=== PATIENT | male | born 1985 | race Caucasian/White ===

== ENCOUNTER 2020-07-26 19:27 | Observation (INO) ==
[2020-07-26] MEDS ORDERED: VANCOMYCIN CONSULT ACTIVE PRN (20:28)
[2020-07-26] MEDS ORDERED: PIPERACILLIN/TAZOBACTAM 4.5 GM/120 ML BAG IV ONE (20:28)
[2020-07-26] MEDS ORDERED: PIPERACILL/TAZOBAC CONSULT ACTIVE PRN (20:28)
[2020-07-26] MEDS ORDERED: VANCOMYCIN HCL 2,250 MG in SODIUM CHLORIDE 0.9% 500 ML IV ONE (20:28)
[2020-07-26] MEDS ORDERED: SODIUM CHLORIDE 0.9% 1000ML 1,000 ML IV SCH ×2 (20:30→21:45)
[2020-07-26] MEDS ORDERED: CLINDAMYCIN 900 MG in DEXTROSE 5% 50 ML IV ONE (20:31)
[2020-07-26 21:07] LABS: Appearance Urine Clear (Clear); Basophils # (auto) 0.01 K/uL (0-0.2); Basophils % (auto) 0.1 %; Bilirubin Urine Negative (Negative); Blood Urine Negative (Negative); Color Urine Yellow; Eosinophils # (auto) 0.01 K/uL (0-0.5); Eosinophils % (auto) 0.1 %; Glucose Urine UA Negative (Negative); Hematocrit (blood only) 44.5 % (42-52); Hemoglobin 15.3 g/dL (14.0-18.0); Immature Granulocytes # (auto) 0.03 K/uL (0.00-0.02); Immature Granulocytes % (auto) 0.2 %; Ketones Urine 2+ (Negative); Leukocyte Esterase Urine Negative (Negative); Lymphocytes # (auto) 0.88 K/uL (1.2-3.4); Lymphocytes % (auto) 6.6 %; Mean Corpuscular Hemoglobin 30.5 pg (25-34); Mean Corpuscular Hgb Conc 34.4 g/dL (32-36); Mean Corpuscular Volume 88.8 fL (80-100); Mean Platelet Volume 11.6 fL (7.4-10.4); Monocytes # (auto) 0.99 K/uL (0.11-0.59); Monocytes % (auto) 7.4 %; Neutrophils # (auto) 11.47 K/uL (1.4-6.5); Neutrophils % (auto) 85.6 %; Nitrite Urine Negative (Negative); Platelet Count 180 K/uL (130-400); Protein Urine Negative (Negative); RDW Coefficient of Variation 12.3 % (11.5-14.5); RDW Standard Deviation 39.2 fL (36.4-46.3); Red Blood Count 5.01 M/uL (4.7-6.1); Specific Gravity Urine 1.023 (1.000-1.030); Urobilinogen Urine Negative (Negative); White Blood Count 13.39 K/uL (4.8-10.8)
--- NOTE | 2020-07-26 21:15 | Emergency Department Note ---
History of Present Illness General Chief complaint: Skin Problem Stated complaint: RECTAL ABSCESS Time Seen by Provider: 07/26/20 20:18 History of Present Illness Maximum Pain Intensity: 6 This is a 35-year-old male that presents to the emergency department via private vehicle accompanied by female with complaints of "rectal abscess". The patient notes over the past 2 to 3 days he has been experiencing swelling and pain to the perineal region. He notes pain extending out from the scrotum to the rectal region. He denies any known trauma or injury. T-max 1026. He is felt chilled. He did have a syncopal event earlier today just prior to arrival. The patient denies any abdominal pain. No blood in the stool. The patient does note a history of pilonidal cyst removal in the past and has had abscesses drained before. Current pain 08/23. Home Medications Medication Instructions Recorded Confirmed Type ibuprofen [Advil] 400 mg PO DIRECTED PRN 07/26/20 07/26/20 History Allergies Allergy/AdvReac Type Severity Reaction Status Date / Time adhesive tape Allergy Intermediate REDDENED Verified 07/26/20 20:14 SKIN, "TADEO", BLISTERS Past Med/Surg History Surgical History S/P tonsillectomy and adenoidectomy Social History Smoking Status: Never smoker Preferred Language: Norwegian Feels Safe at Home: Yes Review of Systems A total of 10 systems reviewed and were otherwise negative Physical Exam Vital Signs Vital Signs - 24 hr 07/26/20 19:35 07/26/20 20:04 07/26/20 21:47 Temperature 37.6 C H 38.1 C H Temperature Source Temporal Artery Scan Oral Pulse Rate 119 H Pulse Rate [Apical] 112 H 103 H Pulse Rhythm [Apical] Regular Regular Pulse Strength [Apical] Normal Normal Respiratory Rate 18 18 18 Respiratory Effort / Characteristics Non-Labored Non-Labored Respiratory Depth Normal Normal Respiratory Pattern Regular Blood Pressure 143/98 H Blood Pressure [Right Arm] 128/74 151/76 H Blood Pressure Mean 113 Blood Pressure Mean [Right Arm] 92 101 Blood Pressure Position Sitting Blood Pressure Position [Right Arm] Lying Lying Pulse Oximetry 98 98 99 Oxygen Delivery Method Room Air Room Air Room Air Sepsis Recent Fever Within 48 Hours Yes Sepsis New/Unexplained Change in Mental Status N/A Sepsis Action Taken by Nursing No Action Required 07/26/20 22:11 07/27/20 00:30 Temperature 38.1 C H Temperature Source Oral Pulse Rate Pulse Rate [Apical] 113 H 87 Pulse Rhythm [Apical] Regular Regular Pulse Strength [Apical] Normal Normal Respiratory Rate 18 18 Respiratory Effort / Characteristics Non-Labored Non-Labored Respiratory Depth Normal Normal Respiratory Pattern Regular Regular Blood Pressure Blood Pressure [Right Arm] 142/79 H 105/73 Blood Pressure Mean Blood Pressure Mean [Right Arm] 100 83 Blood Pressure Position Blood Pressure Position [Right Arm] Lying Pulse Oximetry 98 97 Oxygen Delivery Method Room Air Room Air Sepsis Recent Fever Within 48 Hours Sepsis New/Unexplained Change in Mental Status Sepsis Action Taken by Nursing VITAL SIGNS - Vital signs and nursing notes were reviewed. Tachycardic, febrile, stable. GENERAL -35-year-old male appearing his stated age who is in no acute distress. Communicates well with provider and answers questions appropriately. SKIN -from the posterior aspect of the scrotum through the perineum into the tissues just anterior to the rectal region there is erythema and edema. There is palpable induration. No evidence of drainage. There is some fluctuance. HEAD - NC/AT. EYES - Sclera anicteric. MOUTH/OROPHARYNX - Without perioral cyanosis. LUNGS - CTA CARDIAC - Tachycardic at a regular rate : There is erythema, induration and tenderness to palpation overlying the perineal region extending from the posterior scrotal region to the anterior perianal soft tissues. Fluctuance noted. PSYCH - A&Ox3 and cooperates fully with examiner. Pt is very pleasant and intera cts well with examiner. Course Administered Medications Discontinued Medications Sodium Chloride (Nss 1000ml) 1,000 mls @ 999 mls/hr IV .Q1H1M TRACIE Stop: 07/26/20 21:30 Last Infusion: 07/26/20 21:44 Dose: 0 mls/hr Documented by: [id number] Admin: 07/26/20 20:56 Dose: 999 mls/hr Documented by: [id number] Piperacillin Sod/Tazobactam Sod (Zosyn) 4.5 gm in 120 mls @ 240 mls/hr IV NOW ONE Stop: 07/26/20 20:57 Last Infusion: 07/26/20 21:44 Dose: 0 mls/hr Documented by: [id number] Admin: 07/26/20 20:56 Dose: 240 mls/hr Documented by: [id number] Vancomycin HCl 2,250 mg/ (Sodium Chloride) 545 mls @ 200 mls/hr IV NOW ONE Stop: 07/26/20 23:11 Last Admin: 07/26/20 23:10 Dose: 200 mls/hr Documented by: [id number] Clindamycin Phosphate 900 mg/ (Dextrose) 56 mls @ 112 mls/hr IV ONE ONE Stop: 07/26/20 21:00 Last Infusion: 07/26/20 22:30 Dose: 0 mls/hr Documented by: [id number] Admin: 07/26/20 21:43 Dose: 112 mls/hr Documented by: [id number] Sodium Chloride (Nss 1000ml) 1,000 mls @ 999 mls/hr IV .Q1H1M TRACIE Stop: 07/26/20 22:45 Last Infusion: 07/26/20 23:46 Dose: 0 mls/hr Documented by: [id number] Admin: 07/26/20 22:07 Dose: 999 mls/hr Documented by: [id number] Acetaminophen (Ofirmev) 1,000 mg in 100 mls @ 400 mls/hr IV NOW STA Stop: 07/26/20 22:09 Last Infusion: 07/26/20 22:30 Dose: 0 mls/hr Documented by: [id number] Admin: 07/26/20 22:07 Dose: 400 mls/hr Documented by: [id number] Ioversol (Optiray 300 100ml) 85 ml IV ONCE ONE Stop: 07/26/20 22:37 Last Admin: 07/26/20 22:36 Dose: 85 ml Documented by: [id number] Medical Decision Making Laboratory Data Result diagrams: 07/26/20 20:52 07/26/20 20:52 Lab Results 07/26/20 07/26/20 07/26/20 Range/Units 20:52 20:52 20:52 WBC 13.39 H (4.8-10.8) K/uL RBC 5.01 (4.7-6.1) M/uL Hgb 15.3 (14.0-18.0) g/dL Hct 44.5 (42-52) % MCV 88.8 (80-100) fL MCH 30.5 (25-34) pg MCHC 34.4 (32-36) g/dL RDW Std Deviation 39.2 (36.4-46.3) fL RDW Coeff of [place]ore[place] 12.3 (11.5-14.5) % Plt Count 180 (130-400) K/uL MPV 11.6 H (7.4-10.4) fL Immature Gran % (Auto) 0.2 % Neut % (Auto) 85.6 % Lymph % (Auto) 6.6 % Cross % (Auto) 7.4 % Eos % (Auto) 0.1 % Baso % (Auto) 0.1 % Neut # (Auto) 11.47 H (1.4-6.5) K/uL Lymph # (Auto) 0.88 L (1.2-3.4) K/uL Cross # (Auto) 0.99 H (0.11-0.59) K/uL Eos # (Auto) 0.01 (0-0.5) K/uL Baso # (Auto) 0.01 (0-0.2) K/uL Immature Gran # (Auto) 0.03 H (0.00-0.02) K/uL ESR 13 (0-15) mm/hr Sodium 137 (136-145) mmol/L Potassium 3.5 (3.5-5.1) mmol/L Chloride 104 (98-107) mmol/L Carbon Dioxide 29 (21-32) mmol/L Anion Gap 5.0 (3-11) BUN 17 (7-18) mg/dl Creatinine 1.30 (0.6-1.4) mg/dl Est Cr Clr Drug Dosing 104.3 ml/min Est GFR ( Amer) 83.1 ml/min Est GFR (Non-Af Amer) 71.7 ml/min BUN/Creatinine Ratio 12.7 (10-20) Glucose 81 (70-99) mg/dl Lactate (0.4-2.0) mmol/L Calcium 9.2 (8.5-10.1) mg/dl Magnesium 1.9 (1.8-2.4) mg/dl Total Bilirubin 0.7 (0.2-1) mg/dl AST 12 L (15-37) U/L ALT 43 (12-78) U/L Alkaline Phosphatase 78 (45-117) U/L C-Reactive Protein 10.40 H (0-0.29) mg/dl Total Protein 7.6 (6.4-8.2) gm/dl Albumin 3.8 (3.4-5.0) gm/dl Globulin 3.8 (2.5-4.0) gm/dl Albumin/Globulin Ratio 1.0 (0.9-2) Procalcitonin (0-0.5) ng/ml Urine Color Urine Appearance (Clear) Urine pH (4.5-7.5) Ur Specific [place] (1.000-1.030) Urine Protein (Negative) Urine Glucose (UA) (Negative) Urine Ketones (Negative) Urine Blood (Negative) Urine Nitrite (Negative) Urine Bilirubin (Negative) Urine Urobilinogen (Negative) Ur Leukocyte Esterase (Negative) COVID-19 Eval Order SARS-CoV-2 (PCR) (Negative) 07/26/20 07/26/20 07/26/20 Range/Units 20:52 20:52 20:52 WBC (4.8-10.8) K/uL RBC (4.7-6.1) M/uL Hgb (14.0-18.0) g/dL Hct (42-52) % MCV (80-100) fL MCH (25-34) pg MCHC (32-36) g/dL RDW Std Deviation (36.4-46.3) fL RDW Coeff of Lorene (11.5-14.5) % Plt Count (130-400) K/uL MPV (7.4-10.4) fL Immature Gran % (Auto) % Neut % (Auto) % Lymph % (Auto) % Cross % (Auto) % Eos % (Auto) % Baso % (Auto) % Neut # (Auto) (1.4-6.5) K/uL Lymph # (Auto) (1.2-3.4) K/uL Cross # (Auto) (0.11-0.59) K/uL Eos # (Auto) (0-0.5) K/uL Baso # (Auto) (0-0.2) K/uL Immature Gran # (Auto) (0.00-0.02) K/uL ESR (0-15) mm/hr Sodium (136-145) mmol/L Potassium (3.5-5.1) mmol/L Chloride (98-107) mmol/L Carbon Dioxide (21-32) mmol/L Anion Gap (3-11) BUN (7-18) mg/dl Creatinine (0.6-1.4) mg/dl Est Cr Clr Drug Dosing ml/min Est GFR ( Amer) ml/min Est GFR (Non-Af Amer) ml/min BUN/Creatinine Ratio (10-20) Glucose (70-99) mg/dl Lactate 2.3 H* (0.4-2.0) mmol/L Calcium (8.5-10.1) mg/dl Magnesium (1.8-2.4) mg/dl Total Bilirubin (0.2-1) mg/dl AST (15-37) U/L ALT (12-78) U/L Alkaline Phosphatase (45-117) U/L C-Reactive Protein (0-0.29) mg/dl Total Protein (6.4-8.2) gm/dl Albumin (3.4-5.0) gm/dl Globulin (2.5-4.0) gm/dl Albumin/Globulin Ratio (0.9-2) Procalcitonin 0.11 (0-0.5) ng/ml Urine Color Yellow Urine Appearance Clear (Clear) Urine pH 6.0 (4.5-7.5) Ur Specific [place] 1.023 (1.000-1.030) Urine Protein Negative (Negative) Urine Glucose (UA) Negative (Negative) Urine Ketones 2+ H (Negative) Urine Blood Negative (Negative) Urine Nitrite Negative (Negative) Urine Bilirubin Negative (Negative) Urine Urobilinogen Negative (Negative) Ur Leukocyte Esterase Negative (Negative) COVID-19 Eval Order SARS-CoV-2 (PCR) (Negative) 07/26/20 07/26/20 Range/Units 21:55 21:55 WBC (4.8-10.8) K/uL RBC (4.7-6.1) M/uL Hgb (14.0-18.0) g/dL Hct (42-52) % MCV (80-100) fL MCH (25-34) pg MCHC (32-36) g/dL RDW Std Deviation (36.4-46.3) fL RDW Coeff of Lorene (11.5-14.5) % Plt Count (130-400) K/uL MPV (7.4-10.4) fL Immature Gran % (Auto) % Neut % (Auto) % Lymph % (Auto) % Cross % (Auto) % Eos % (Auto) % Baso % (Auto) % Neut # (Auto) (1.4-6.5) K/uL Lymph # (Auto) (1.2-3.4) K/uL Cross # (Auto) (0.11-0.59) K/uL Eos # (Auto) (0-0.5) K/uL Baso # (Auto) (0-0.2) K/uL Immature Gran # (Auto) (0.00-0.02) K/uL ESR (0-15) mm/hr Sodium (136-145) mmol/L Potassium (3.5-5.1) mmol/L Chloride (98-107) mmol/L Carbon Dioxide (21-32) mmol/L Anion Gap (3-11) BUN (7-18) mg/dl Creatinine (0.6-1.4) mg/dl Est Cr Clr Drug Dosing ml/min Est GFR ( Amer) ml/min Est GFR (Non-Af Amer) ml/min BUN/Creatinine Ratio (10-20) Glucose (70-99) mg/dl Lactate (0.4-2.0) mmol/L Calcium (8.5-10.1) mg/dl Magnesium (1.8-2.4) mg/dl Total Bilirubin (0.2-1) mg/dl AST (15-37) U/L ALT (12-78) U/L Alkaline Phosphatase (45-117) U/L C-Reactive Protein (0-0.29) mg/dl Total Protein (6.4-8.2) gm/dl Albumin (3.4-5.0) gm/dl Globulin (2.5-4.0) gm/dl Albumin/Globulin Ratio (0.9-2) Procalcitonin (0-0.5) ng/ml Urine Color Urine Appearance (Clear) Urine pH (4.5-7.5) Ur Specific [place] (1.000-1.030) Urine Protein (Negative) Urine Glucose (UA) (Negative) Urine Ketones (Negative) Urine Blood (Negative) Urine Nitrite (Negative) Urine Bilirubin (Negative) Urine Urobilinogen (Negative) Ur Leukocyte Esterase (Negative) COVID-19 Eval Order Covid19 at [facility] SARS-CoV-2 (PCR) NEGATIVE (Negative) Imaging Data Radiologist's Impression: CT ABDOMEN & PELVIS With Contrast: 6.6 x 3.0 x 2.0 cm peripheral enhancing fluid collection of the perineum, likely an abscess. The posterior margin approximates, but does not appear to extend into the anal verge. There is soft tissue thickening of the posterior margin of the scrotum which may be reactive to the adjacent presumed abscess or represent cellulitis. Hepatic steatosis. Normal appendix. No free fluid or free air. Radiologist: Jose F Hurley MD Study ready at 22:48 and initial results transmitted at 22:54 MDM Narrative Patient was seen and evaluated as above in room B7. Review was performed of nursing notes and vital signs. After obtaining a thorough history and physical examination the above work up was performed. Patient presents to us today with fever, tachycardia, and pain in the perineal region. On exam there is what appears to be a perineal abscess. Options of care were discussed with the patient. The patient does have what appears to be a large developing abscess and now cellulitis to the perineum in the setting of now fever, tachycardia and syncopal event prior to arrival. IV access was established and patient was given fluids as well as broad-spectrum antibiotics. He was given IV Zosyn, IV vancomycin and IV clindamycin. He is also given IV acetaminophen for his fever. Patient declined any narcotic analgesics. Laboratory studies here reveal leukocytosis 13.39 without significant anemia. No emergent metabolic disturbance however I will note lactic elevation at 2.3. CRP 10.4. Pro-Hermann 0.11. Urinalysis does not suggest infection. Covid testing negative. CT scan of the abdomen and pelvis does reveal 6.6 x 3.0 x 2.2 cm peripheral enhancing fluid collection of the perineum, likely an abscess. The posterior margin approximates, but does not appear to extend into the anal verge. There is suspected cellulitis which clinically co rrelates. Patient was given a copy of the CT scan report. Case discussed with the attending physician as well as the surgeon who came to evaluate the patient and will take him to the operating room. Please refer to further documentation regarding his stay. While in the department, I personally reevaluated the patient several times and each time the patient was found to be resting comfortably once given fluids and IV acetaminophen. EKG was reviewed by myself and found to be Normal Sinus Rhythm at a rate of 100 beats per minute and per my interpretation reveals TW IN lead III without any ST elevation. QTc 417. QRS 98. No previous for comparison. GCS: 15 In the evaluation and treatment of this patient the following differential diagnoses were entertained: Monica's gangrene, perianal abscess, perineal abscess, scrotal abscess, fistula, sepsis, cellulitis, among others. Impression & Plan Abscess of perineum, Cellulitis of perineum, Fever, Elevated lactic acid level, Tachycardia Discharge Plan Visit Data Chief Complaint: Skin Problem Stated Complaint: RECTAL ABSCESS ED Provider: Phil Russell ED Midlevel Provider: Rolando Langston Discharge Problem: Abscess of perineum, Cellulitis of perineum, Fever, Elevated lactic acid level, Tachycardia Patient Disposition: Admitted As Inpatient Condition: Good Discharge Instructions Interventions: ED Discharge Assessment Last Done: 07/27/20 00:58
[2020-07-26 21:45] LABS: Albumin Level 3.8 gm/dl (3.4-5.0); BUN Creatinine Ratio 12.7 (10-20); C Reactive Protein 10.4 mg/dl (0-0.29); Calcium 9.2 mg/dl (8.5-10.1); Creatinine Clr Calc Pharmacy 104.3 ml/min; Est GFR (African American) 83.1 ml/min; Est GFR (Non-African American) 71.7 ml/min; Magnesium 1.9 mg/dl (1.8-2.4); Potassium 3.5 mmol/L (3.5-5.1)
[2020-07-26 21:48] LABS: Bilirubin,Total 0.7 mg/dl (0.2-1); Globulin 3.8 gm/dl (2.5-4.0); Total Protein 7.6 gm/dl (6.4-8.2)
[2020-07-26] MEDS ORDERED: ACETAMINOPHEN 1,000 MG/100 ML VIAL IV STA (21:55)
[2020-07-26] MEDS ORDERED: OPTIRAY 300 100mL IV ONE (22:36)
[2020-07-27] MEDS ORDERED: fentaNYL citrate 100 MCG/2 ML VIAL ONE (00:34)
[2020-07-27] MEDS ORDERED: DEXAMETHASONE SOD INJ 4 MG/ML VIAL ONE (00:34)
[2020-07-27] MEDS ORDERED: KETOROLAC 30 MG/ML VIAL ONE (00:34)
[2020-07-27] MEDS ORDERED: MIDAZOLAM HCL 1 MG/ML 2ML VIAL ONE (00:34)
[2020-07-27] MEDS ORDERED: ONDANSETRON INJ 2 MG/ML 2 ML VIAL ONE (00:34)
[2020-07-27] MEDS ORDERED: PROPOFOL IV EMULSION 10 MG/ML 20 ML VIAL IV ONE (00:34)
--- NOTE | 2020-07-27 00:40 | Anesthesiology Consultation ---
Date of Service July 27, 2020 Assessment & Plan (1) Encounter for pre-operative examination: Chart Review Chart Review: Acceptable Risk for Surgery and Patient NOT seen in Pre Admission Testing covid neg 07/26/20. Consults Requested none History Surgery Operation Date: 07/27/20 01:00 Proposed Procedures p Rectal Surgery - Miguel Angel Bell MD Height/Weight Height: 6 ft Weight: 111.8 kg Allergies Allergy/AdvReac Type Severity Reaction Status Date / Time adhesive tape Allergy Intermediate REDDENED Verified 07/26/20 20:14 SKIN, "TADEO", BLISTERS Medications Home Medications Medication Instructions Recorded Confirmed Last Taken ibuprofen [Advil] 400 mg PO DIRECTED PRN 07/26/20 07/26/20 07/26/20 12:00 400 MG Exercise / Class Metabolic Activity II 4-5 Yardwork/Stairs/Walk up hill Past Surgical History Surgical History (Updated 07/27/20 @ 00:45 by Miguel Angel Bell MD) S/P tonsillectomy and adenoidectomy Past Anesthesia History No Hx of Anesthesia Complications and No Family Hx of Anesthesia Complications History of PONV No Hx of PONV and No Hx of Motion Sickness Social History Smoking Status: Never smoker Physical Exam Vital Signs Last Vital Signs Temp 38.1 C H 07/27/20 00:30 Pulse 87 07/27/20 00:30 Resp 18 07/27/20 00:30 BP 105/73 07/27/20 00:30 Pulse Ox 97 07/27/20 00:30 Testing Laboratory Results 07/26/20 20:52 07/26/20 20:52 Urine Color Yellow 07/26/20 20:52 Urine Appearance Clear (Clear) 07/26/20 20:52 Urine pH 6.0 (4.5-7.5) 07/26/20 20:52 Ur Specific [place] 1.023 (1.000-1.030) 07/26/20 20:52 Urine Protein Negative (Negative) 07/26/20 20:52 Urine Glucose (UA) Negative (Negative) 07/26/20 20:52 Urine Ketones 2+ (Negative) H 07/26/20 20:52 Urine Nitrite Negative (Negative) 07/26/20 20:52 Ur Leukocyte Esterase Negative (Negative) 07/26/20 20:52
--- NOTE | 2020-07-27 00:46 | History & Physical Report ---
Date of Service July 27, 2020 Assessment & Plan (1) Perineal abscess: This patient has a 6 cm perineal abscess. I have recommended incision and drainage in the operating room. He was tachycardic and had a syncopal episode. I would recommend admission following the procedure. I explained him the procedure and the possible complications I answered his questions and he has signed a consent form. History of Present Illness Chief Complaint: Perineal abscess Primary Care Provider: NO PCP This is a 35-year-old male who presented to the emergency room with a complaint of pain in the perineal area. He had not been feeling well for a while. He had a syncopal episode while at a fast food restaurant. He had fever and some mild chills. He had pain in the perineal area that began about 2 days ago. The pain is increased in intensity. It is difficult for him to sit. He has had abscesses in these areas before but they have usually drained spontaneously. He has had some abscesses in the axilla that have required I&D but never the perineal area was I&D necessary. He has no change in his bowel or bladder habits. There is no dysuria or hematuria. He denies melena and hematochezia. The pain is localized to the perineal area. There is no generalized abdominal pain associated with this. He has no nausea or vomiting. Upon arrival in the emergency room he was mildly tachycardic. He was given IV antibiotics and IV fluids and his heart rate came down to below 100. Allergies Allergy/AdvReac Type Severity Reaction Status Date / Time adhesive tape Allergy Intermediate REDDENED Verified 07/26/20 20:14 SKIN, "TADEO", BLISTERS Home Medications Medication Instructions Recorded Confirmed Type ibuprofen [Advil] 400 mg PO DIRECTED PRN 07/26/20 07/26/20 History Past Med/Surg History Surgical History (Updated 07/27/20 @ 00:45 by Miguel Angel Bell MD) S/P tonsillectomy and adenoidectomy Social History Smoking Status: Never smoker Preferred Language: Bermudian Feels Safe at Home: Yes Review of Systems Review of Systems: All systems reviewed & are unremarkable except as noted in HPI & below Physical Exam Constitutional: no acute distress Neck: trachea midline Respiratory: normal respiratory effort, lungs clear to auscultation Cardiovascular: Rate/Rhythm: regular rate and regular rhythm Gastrointestinal (Abdomen): Inspection/Auscultation: abdomen normal to inspection; abdomen not distended Percussion/Palpation: abdomen soft; abdomen nontender Skin: no rashes, warm and dry Lymphatic: no cervical lymphadenopathy Results & Data Results & Data ([facility]) Vital Signs (Past 12 Hours) Vital Signs Temp Pulse Pulse Resp BP BP Pulse Ox 07/27/20 00:30 38.1 C H 87 18 105/73 97 07/26/20 22:11 113 H 18 142/79 H 98 07/26/20 21:47 38.1 C H 103 H 18 151/76 H 99 07/26/20 20:04 112 H 18 128/74 98 07/26/20 19:35 37.6 C H 119 H 18 143/98 H 98 Laboratory Results 07/26/20 07/26/20 07/26/20 Range/Units 21:55 21:55 20:52 WBC (4.8-10.8) K/uL RBC (4.7-6.1) M/uL Hgb (14.0-18.0) g/dL Hct (42-52) % MCV (80-100) fL MCH (25-34) pg MCHC (32-36) g/dL RDW Std Deviation (36.4-46.3) fL RDW Coeff of Lorene (11.5-14.5) % Plt Count (130-400) K/uL MPV (7.4-10.4) fL Immature Gran % (Auto) % Neut % (Auto) % Lymph % (Auto) % Steele % (Auto) % Eos % (Auto) % Baso % (Auto) % Neut # (Auto) (1.4-6.5) K/uL Lymph # (Auto) (1.2-3.4) K/uL Steele # (Auto) (0.11-0.59) K/uL Eos # (Auto) (0-0.5) K/uL Baso # (Auto) (0-0.2) K/uL Immature Gran # (Auto) (0.00-0.02) K/uL ESR (0-15) mm/hr Sodium (136-145) mmol/L Potassium (3.5-5.1) mmol/L Chloride (98-107) mmol/L Carbon Dioxide (21-32) mmol/L Anion Gap (3-11) BUN (7-18) mg/dl Creatinine (0.6-1.4) mg/dl Est Cr Clr Drug Dosing ml/min Est GFR ( Amer) ml/min Est GFR (Non-Af Amer) ml/min BUN/Creatinine Ratio (10-20) Glucose (70-99) mg/dl Lactate (0.4-2.0) mmol/L Calcium (8.5-10.1) mg/dl Magnesium (1.8-2.4) mg/dl Total Bilirubin (0.2-1) mg/dl AST (15-37) U/L ALT (12-78) U/L Alkaline Phosphatase (45-117) U/L C-Reactive Protein (0-0.29) mg/dl Total Protein (6.4-8.2) gm/dl Albumin (3.4-5.0) gm/dl Globulin (2.5-4.0) gm/dl Albumin/Globulin Ratio (0.9-2) Procalcitonin (0-0.5) ng/ml Urine Color Yellow Urine Appearance Clear (Clear) Urine pH 6.0 (4.5-7.5) Ur Specific Florence 1.023 (1.000-1.030) Urine Protein Negative (Negative) Urine Glucose (UA) Negative (Negative) Urine Ketones 2+ H (Negative) Urine Blood Negative (Negative) Urine Nitrite Negative (Negative) Urine Bilirubin Negative (Negative) Urine Urobilinogen Negative (Negative) Ur Leukocyte Esterase Negative (Negative) COVID-19 Eval Order Covid19 at [facility] SARS-CoV-2 (PCR) NEGATIVE (Negative) 07/26/20 07/26/20 07/26/20 Range/Units 20:52 20:52 20:52 WBC (4.8-10.8) K/uL RBC (4.7-6.1) M/uL Hgb (14.0-18.0) g/dL Hct (42-52) % MCV (80-100) fL MCH (25-34) pg MCHC (32-36) g/dL RDW Std Deviation (36.4-46.3) fL RDW Coeff of Lorene (11.5-14.5) % Plt Count (130-400) K/uL MPV (7.4-10.4) fL Immature Gran % (Auto) % Neut % (Auto) % Lymph % (Auto) % Steele % (Auto) % Eos % (Auto) % Baso % (Auto) % Neut # (Auto) (1.4-6.5) K/uL Lymph # (Auto) (1.2-3.4) K/uL Steele # (Auto) (0.11-0.59) K/uL Eos # (Auto) (0-0.5) K/uL Baso # (Auto) (0-0.2) K/uL Immature Gran # (Auto) (0.00-0.02) K/uL ESR (0-15) mm/hr Sodium 137 (136-145) mmol/L Potassium 3.5 (3.5-5.1) mmol/L Chloride 104 (98-107) mmol/L Carbon Dioxide 29 (21-32) mmol/L Anion Gap 5.0 (3-11) BUN 17 (7-18) mg/dl Creatinine 1.30 (0.6-1.4) mg/dl Est Cr Clr Drug Dosing 104.3 ml/min Est GFR ( Amer) 83.1 ml/min Est GFR (Non-Af Amer) 71.7 ml/min BUN/Creatinine Ratio 12.7 (10-20) Glucose 81 (70-99) mg/dl Lactate 2.3 H* (0.4-2.0) mmol/L Calcium 9.2 (8.5-10.1) mg/dl Magnesium 1.9 (1.8-2.4) mg/dl Total Bilirubin 0.7 (0.2-1) mg/dl AST 12 L (15-37) U/L ALT 43 (12-78) U/L Alkaline Phosphatase 78 (45-117) U/L C-Reactive Protein 10.40 H (0-0.29) mg/dl Total Protein 7.6 (6.4-8.2) gm/dl Albumin 3.8 (3.4-5.0) gm/dl Globulin 3.8 (2.5-4.0) gm/dl Albumin/Globulin Ratio 1.0 (0.9-2) Procalcitonin 0.11 (0-0.5) ng/ml Urine Color Urine Appearance (Clear) Urine pH (4.5-7.5) Ur Specific Florence (1.000-1.030) Urine Protein (Negative) Urine Glucose (UA) (Negative) Urine Ketones (Negative) Urine Blood (Negative) Urine Nitrite (Negative) Urine Bilirubin (Negative) Urine Urobilinogen (Negative) Ur Leukocyte Esterase (Negative) COVID-19 Eval Order SARS-CoV-2 (PCR) (Negative) 07/26/20 07/26/20 Range/Units 20:52 20:52 WBC 13.39 H (4.8-10.8) K/uL RBC 5.01 (4.7-6.1) M/uL Hgb 15.3 (14.0-18.0) g/dL Hct 44.5 (42-52) % MCV 88.8 (80-100) fL MCH 30.5 (25-34) pg MCHC 34.4 (32-36) g/dL RDW Std Deviation 39.2 (36.4-46.3) fL RDW Coeff of Lorene 12.3 (11.5-14.5) % Plt Count 180 (130-400) K/uL MPV 11.6 H (7.4-10.4) fL Immature Gran % (Auto) 0.2 % Neut % (Auto) 85.6 % Lymph % (Auto) 6.6 % Steele % (Auto) 7.4 % Eos % (Auto) 0.1 % Baso % (Auto) 0.1 % Neut # (Auto) 11.47 H (1.4-6.5) K/uL Lymph # (Auto) 0.88 L (1.2-3.4) K/uL Steele # (Auto) 0.99 H (0.11-0.59) K/uL Eos # (Auto) 0.01 (0-0.5) K/uL Baso # (Auto) 0.01 (0-0.2) K/uL Immature Gran # (Auto) 0.03 H (0.00-0.02) K/uL ESR 13 (0-15) mm/hr Sodium (136-145) mmol/L Potassium (3.5-5.1) mmol/L Chloride (98-107) mmol/L Carbon Dioxide (21-32) mmol/L Anion Gap (3-11) BUN (7-18) mg/dl Creatinine (0.6-1.4) mg/dl Est Cr Clr Drug Dosing ml/min Est GFR ( Amer) ml/min Est GFR (Non-Af Amer) ml/min BUN/Creatinine Ratio (10-20) Glucose (70-99) mg/dl Lactate (0.4-2.0) mmol/L Calcium (8.5-10.1) mg/dl Magnesium (1.8-2.4) mg/dl Total Bilirubin (0.2-1) mg/dl AST (15-37) U/L ALT (12-78) U/L Alkaline Phosphatase (45-117) U/L C-Reactive Protein (0-0.29) mg/dl Total Protein (6.4-8.2) gm/dl Albumin (3.4-5.0) gm/dl Globulin (2.5-4.0) gm/dl Albumin/Globulin Ratio (0.9-2) Procalcitonin (0-0.5) ng/ml Urine Color Urine Appearance (Clear) Urine pH (4.5-7.5) Ur Specific Florence (1.000-1.030) Urine Protein (Negative) Urine Glucose (UA) (Negative) Urine Ketones (Negative) Urine Blood (Negative) Urine Nitrite (Negative) Urine Bilirubin (Negative) Urine Urobilinogen (Negative) Ur Leukocyte Esterase (Negative) COVID-19 Eval Order SARS-CoV-2 (PCR) (Negative) Diagnostic Findings CT scan of the abdomen pelvis shows a 6.6 x 3.0 x 2.0 cm rim-enhancing fluid collection in the perineum consistent with abscess.
[2020-07-27] MEDS ORDERED: ePHEDrine sulfate 50 MG/ML AMP IV PRN (01:04)
[2020-07-27] MEDS ORDERED: fentaNYL citrate 100 MCG/2 ML VIAL IV PRN (01:04)
[2020-07-27] MEDS ORDERED: ATROPINE SULFATE 0.1 MG/ML 10ML SYR IV PRN (01:04)
[2020-07-27] MEDS ORDERED: ONDANSETRON INJ 2 MG/ML 2 ML VIAL IV PRN ×2 (01:04→01:58)
[2020-07-27] MEDS ORDERED: HYDROmorphone INJ 1 MG/ML SYRINGE IV PRN (01:04)
[2020-07-27] MEDS ORDERED: PIPERACILL/TAZOBAC CONSULT ACTIVE PRN (01:58)
[2020-07-27] MEDS ORDERED: oxyCODONE/ACETAMINOPHEN 5mg/325mg TAB PO PRN (01:58)
[2020-07-27] MEDS ORDERED: MoRPHine SULFATE 2 MG/ML CARP IV PRN (01:58)
--- NOTE | 2020-07-27 01:58 | Post Operative Brief Note ---
Immediate Post Op Note v1 Date of Surgery July 27, 2020 Pre & Post Diagnosis Operation Date: 07/27/20 01:00 Pre-Op Diagnosis: Perirectal abscess Post-Op Diagnosis: Perirectal abscess I identified the patient and participated in the time-out.: Yes Procedure Operation Date: 07/27/20 01:00 Actual Procedures p Perirectal abscess irrigation and debridement (Not Applicable) - Miguel Angel Bell MD Surgeon Miguel Angel Bell MD [employer] none Estimated Blood Loss 5 Findings Consistent with Post-Op Diagnosis
[2020-07-27] MEDS ORDERED: SODIUM CHLORIDE 0.9% 1000ML 1,000 ML IV SCH ×2 (02:00)
--- NOTE | 2020-07-27 02:24 | Anesthesiology Progress Note ---
Date of Service July 27, 2020 Anesthesia Post Procedure Vital Signs Vital Signs: Temp Pulse Pulse Resp BP BP Pulse Ox 07/27/20 02:21 38 C H 93 H 20 156/85 H 95 07/27/20 02:10 37.5 C 102 H 15 168/97 H 100 07/27/20 00:30 38.1 C H 87 18 105/73 97 07/26/20 22:11 113 H 18 142/79 H 98 07/26/20 21:47 38.1 C H 103 H 18 151/76 H 99 07/26/20 20:04 112 H 18 128/74 98 07/26/20 19:35 37.6 C H 119 H 18 143/98 H 98 Pain Intensity Perineal: Pain Intensity: 6 Transfer of Care Handoff Completed per policy Notes Mental Status: alert / awake / arousable and participated in evaluation Patient Amnestic to Procedure: Yes Nausea / Vomiting: adequately controlled Pain: adequately controlled Airway Patency, RR, SpO2: stable & adequate BP & HR: stable & adequate Hydration State: stable & adequate Anesthetic Complications: no major complications apparent and Pt Satisfied with anesthetic care
[2020-07-27] MEDS: PIPERACILLIN/TAZOBACTAM 3.375 GM in DEXTROSE 5% 100 ML IV SCH ×2 (03:55→11:27)
--- NOTE | 2020-07-27 05:05 | Operative Report (OR) ---
DATE OF OPERATION: 07/27/2020 PREOPERATIVE DIAGNOSIS: Perineal abscess. POSTOPERATIVE DIAGNOSIS: Perineal abscess. PROCEDURE: I and D of perineal abscess. SURGEON: Miguel Angel Bell MD FINDINGS: The patient had a cavity that extended along the perineum from the base of the scrotum towards the anal canal, but did not reach the anal verge. There was a large amount of purulent fluid. This was cultured. TECHNIQUE: The patient was given a general anesthetic and the area was prepped and draped in the usual sterile fashion. An 18-gauge needle was passed into the cavity and purulent material was aspirated. The fluid was sent for culture. An incision was made in the center and carried down deeply into the abscess cavity. The purulent material was aspirated and removed using suction. The cavity was then irrigated with a copious amount of saline solution. The cavity was then packed. The estimated blood loss was 5 mL. Sponge, needle, and instrument counts were correct prior to closure. The patient tolerated the surgical procedure without complication and was transferred to recovery. I attest to the content of the Intraoperative Record and any orders documented therein. Any exception s are noted below.
[2020-07-27 06:58] LABS: Basophils # (auto) 0.01 K/uL (0-0.2); Basophils % (auto) 0.1 %; Hematocrit (blood only) 40.3 % (42-52); Hemoglobin 13.7 g/dL (14.0-18.0); Immature Granulocytes # (auto) 0.02 K/uL (0.00-0.02); Immature Granulocytes % (auto) 0.2 %; Lymphocytes # (auto) 1.03 K/uL (1.2-3.4); Lymphocytes % (auto) 8.7 %; Mean Corpuscular Hemoglobin 30.2 pg (25-34); Mean Corpuscular Volume 88.8 fL (80-100); Mean Platelet Volume 11.5 fL (7.4-10.4); Monocytes # (auto) 0.96 K/uL (0.11-0.59); Monocytes % (auto) 8.1 %; Neutrophils # (auto) 9.88 K/uL (1.4-6.5); Neutrophils % (auto) 82.9 %; Platelet Count 152 K/uL (130-400); RDW Coefficient of Variation 12.3 % (11.5-14.5); RDW Standard Deviation 39.4 fL (36.4-46.3); Red Blood Count 4.54 M/uL (4.7-6.1)
--- NOTE | 2020-07-27 07:26 | CT Scan Report ---
CT SCAN OF THE ABDOMEN AND PELVIS WITH IV CONTRAST CLINICAL HISTORY: Scrotal/perineal pain and edema. Perianal pain and swelling. COMPARISON STUDY: No priors. TECHNIQUE: Following the IV administration of 85 cc of Optiray 300, CT scan of the abdomen and pelvi s is performed from the lung bases to the proximal femora. Images are reviewed in the axial, sagittal , and coronal planes. IV contrast was administered without complication. A dose lowering technique wa s utilized adhering to the principles of ALARA. CT DOSE: 1424.53 mGy.cm FINDINGS: Lung bases: The heart is normal in size and without pericardial effusion. The lung bases are clear. T here is a small hiatal hernia. Liver: The contrast-enhanced liver is enlarged, measuring 22.8 cm in length. The liver demonstrates d iffusely diminished attenuation consistent with severe hepatic steatosis. Fatty sparing is seen adjac ent to gallbladder fossa. There is no intrahepatic biliary ductal dilatation. The hepatic veins and p ortal veins are patent. Gallbladder: Unremarkable. Spleen: Normal in size and attenuation. Pancreas: Unremarkable. Adrenal glands: Unremarkable. Kidneys: The contrast enhanced kidneys are normal in size and without hydronephrosis. The kidneys enh ance symmetrically. Abdominal vasculature: The abdominal aorta is normal in course and caliber. Bowel: There is no bowel obstruction. The appendix is well-visualized and normal. Peritoneum: There is no intraperitoneal free air or abdominal ascites. There is a fat-containing umbi lical hernia. Lymphadenopathy: A mildly enlarged left periaortic node on image #116 measures 12 mm in short axis. N o additional enlarged lymph nodes are identified in the abdomen or pelvis. Pelvic viscera: The bladder, prostate, and seminal vesicles are normal as visualized. Small bilateral varicoceles are suggested. The perianal soft tissues are normal. Skeletal structures: No lytic or blastic lesions are seen. Soft tissues: There is dermal thickening and soft tissue infiltration identified involving the perine al and scrotum soft tissues. An organized fluid collection is identified in the midline of the perito neum on image #552. This is located below the gluteal crease and minimally extends into the medial as pect of the right upper thigh. The collection is thick walled and measures 3.6 x 9.5 x 2.0 cm. The an terior aspect of this collection involves the posterior scrotum. Posteriorly this approaches but does not extend to the anal verge. No deep soft tissue gas is identified. IMPRESSION: 1. There is evidence of cellulitis involving the perineal and scrotal soft tissues. No deep soft tiss ue gas is identified. 2. There is a large fluid collection identified within the midline inferior perineal soft tissues as above that is typical for abscess. 3. The perianal soft tissues are normal as visualized. 4. Hepatomegaly and severe hepatic steatosis. 5. A mildly enlarged left retroperitoneal lymph node is nonspecific and may be reactive. 6. Additional findings as above. ACT 112: Negative or not required by law. Electronically signed by: Ney Vásquez M.D. 07/27/2020 7:24 AM
--- NOTE | 2020-07-27 10:32 | Discharge Summary ---
Date of Service July 27, 2020 Admission HPI Per Admitting Provider This is a 35-year-old male who presented to the emergency room with a complaint of pain in the perineal area. He had not been feeling well for a while. He had a syncopal episode while at a fast food restaurant. He had fever and some mild chills. He had pain in the perineal area that began about 2 days ago. The pain is increased in intensity. It is difficult for him to sit. He has had abscesses in these areas before but they have usually drained spontaneously. He has had some abscesses in the axilla that have required I&D but never the perineal area was I&D necessary. He has no change in his bowel or bladder habits. There is no dysuria or hematuria. He denies melena and hematochezia. The pain is localized to the perineal area. There is no generalized abdominal pain associated with this. He has no nausea or vomiting. Upon arrival in the emergency room he was mildly tachycardic. He was given IV antibiotics and IV fluids and his heart rate came down to below 100. Principal Diagnosis Perineal abscess Discharge Exam Constitutional WD/WN, vitals as above Respiratory normal respiratory effort; no respiratory distress and no labored breathing Gastrointestinal (Abdomen) Perineal region with less induration , no erythem, packing present, wound looked healthy without necrosis. minimal tenderness Skin no rashes, warm and dry Psychiatric A+Ox3, euthymic affect Discharge Data Allergies Allergy/AdvReac Type Severity Reaction Status Date / Time adhesive tape Allergy Intermediate REDDENED Verified 07/26/20 20:14 SKIN, "TADEO", BLISTERS Consultations 07/27/20 00:14 ED Decision to Admit Stat Procedures Performed Operation Date: 07/27/20 01:00 Actual Procedures p Perirectal abscess irrigation and debridement (Not Applicable) - Miguel Angel Bell MD Ordered Studies 07/26/20 20:28 CT abd pelvis IV con only Urgent Hospital Course (1) Perineal abscess: Patient was taken to operating room for incision and drainage of perineal abscess. Patient was found to have large amount of purulence in the abscess cavity. Patient tolerated procedure well. Culture was obtained. Transferred to recovery then to medical/surgical floor for postop care. Diet advanced, activity as tolerated, IV Zosyn was continued, and pain management as needed. POD # 0 about 8 hours postop, vitals stable, afebrile, pain controlled. Patient was discharged home in stable condition with 7 day course of po Bactrim and close follow-up in surgical office advised. Total Time Total Time Spent Total Time Spent (In Minutes): 30 Total Time Includes: Examination of the Patient, Discharge Planning and Medication Reconciliation Discharge Plan Discharge Items Patient Disposition: Home - Self-Care Reason For Visit: PERINEAL ABSCESS Discharge Diagnosis: Same Condition on Discharge: Good Activity: Per Instructions section Non-emergency contact: Surgeon Call non-emergency contact if: your pain is not controlled, your pain is worsening, you have a fever, your temperature is above 101, your wound has increased redness, your wound has increased drainage and your wound pain has increased Follow-up/Referrals: Miguel Angel Bell MD [Physician] - (follow-up in 1 week) PCP,WILNER [Primary Care Provider] - Diet: Regular Addtl Attending Provider Instructions: ACTIVITY RECOMMENDATIONS: * No heavy lifting for 1 week. MEDICATIONS: Resume previous medications unless instructed otherwise by your surgeon. * Colace 100 mg 2 times per day * Extra Strength Tylenol 500 - 1000 mg every 4 hours, as needed for pain * Ibuprofen 600 mg every 6 hours, as needed for pain, take with food. * Take antibiotics for 7 days as prescribed, take entire course SPECIAL CARE INSTRUCTIONS: * Remove packing from wound on Thursday. * Shower daily and as needed to keep wound clean. Just let soap and water run over area and pat dry. * Change outer dressings as needed to keep clean and dry. * Call the surgeon's office with any questions or concerns - (ex. temperature higher than 101 degrees F, excessive bleeding or pain). FOLLOW UP VISIT: If not already scheduled, please call the office to schedule a one week follow- up appointment. Office number . Pending Studies at Discharge: Yes Stand-Alone Forms: My mmCHANNEL, Work/School Release Medications and DC Order Prescriptions: New sulfamethoxazole-trimethoprim [Bactrim DS] 800-160 mg tablet 1 tab PO BID 7 Days Qty: 14 RF: 0 Continued ibuprofen [Advil] 200 mg Tablet 400 mg PO DIRECTED PRN (Reason: FEVER/PAIN) RF: 0 Discharge Orders: Discharge Order (Routine); Ordered 07/27/20 Ordered By: Petra Chinchilla Admission Data Admit Date/Time: 07/27/20 01:58 Attending Provider: Miguel Angel Bell Admit Provider: Miguel Angel Bell Primary Care Provider: PCP,NO Other Providers: Miguel Angel Bell
--- NOTE | 2020-07-27 23:27 | Electrocardiogram Report ---
Test Reason : Blood Pressure : / mmHG Vent. Rate : 100 BPM Atrial Rate : 100 BPM P-R Int : 136 ms QRS Dur : 098 ms QT Int : 324 ms P-R-T Axes : 064 075 026 degrees QTc Int : 417 ms Normal sinus rhythm Nonspecific T wave abnormality Abnormal ECG No previous ECGs available Confirmed by Noel Moyer ([id number]) on 07/27/2020 11:27:07 PM Referred By: REFERRED SELF Confirmed By:Noel Moyer
--- NOTE | 2020-07-28 03:18 | Communication Note ---
Date of Service: July 28, 2020 This provider was notified by the microbiology lab on 07/27/2020 of a positive blood culture. Patient's chart was reviewed and the patient had blood cultures drawn in the emergency department prior to undergoing surgery. On the same date the patient underwent drainage of a perirectal abscess and was discharged home the same day. Positive blood culture was noted to have gram-negative bacilli. No further organism identification or sensitivities were available at this time. Patient's chart was reviewed and he was discharged home on antibiotics in the form of Bactrim. We will continue await further culture data and tailor the patient's antibiotics if necessary.
--- NOTE | 2020-07-31 12:57 | Pharmacy Report ---
ED Pharmacist Culture FollowUP - Culture Follow Up Note Date of Service: July 31, 2020 Notes:: Inpatient departed micro report forwarded to ED: Preliminary blood culture is growing bacteroides fragilis. Perirectal abscess is also growing the same organism. Patient has been discharged on Bactrim. Dr Bell notified of blood culture result and lack of anaerobic coverage with Bactrim monotherapy. Provider will arrange for patient to be contacted.
== END 2020-07-27 12:12 | disposition home or self-care (01) ==
LOC: ED 19:27 → 3W 07-27 00:55 → OR 07-27 00:55